=== PATIENT | female | born 1980 | race Caucasian/White ===

== ENCOUNTER → 2017-02-09 | Outpatient (CLI) | payer OTHER ==
[~2017-02-09] MED LIST: CYAN10005 PO; DOXY100T17 PO; ERGO500037 PO; vitamin B12 IM
--- NOTE | 2017-02-09 17:32 | DIAGNOSTIC IMAGING REPORT ---
Venous Doppler right leg RIGHT VENOUS DOPP LOWER EXT UNILAT CLINICAL HISTORY: SWELLING OF RIGHT LOWER EXTREMITY, M79.89 Right TECHNIQUE: Venous Doppler COMPARISON STUDY: None FINDINGS: Normal study IMPRESSION: Normal study Electronically signed by: Eber Bonner M.D. 02/09/2017 5:30 PM Dictated Date/Time: 02/09/2017 5:29 PM
== END | disposition home or self-care (01) ==
LOC: C.ULTR 16:56
PROVIDERS: ATTEND Internal Medicine
DX: M79.89 Other specified soft tissue disorders (principal)

== ENCOUNTER → 2017-04-22 | Outpatient (CLI) | payer OTHER ==
--- NOTE | 2017-04-22 17:31 | DIAGNOSTIC IMAGING REPORT ---
LEFT WRIST 4 VIEWS CLINICAL HISTORY: Left wrist pain. FINDINGS: 4 views of left wrist are obtained. No prior studies are available for comparison at the time of dictation. The skeletal structures are well mineralized. No fracture is seen. The joint spaces of the wrist are well-maintained. The overlying soft tissues are within normal limits. IMPRESSION: Unremarkable radiographic assessment of the left wrist. Electronically signed by: Calos Gurrola M.D. 04/22/2017 5:30 PM Dictated Date/Time: 04/22/2017 5:29 PM
[2017-04-22 17:45] LABS: BASO % 0.6 %; BASO ABS # 0.04 K/uL (0-0.2); COMPLETE YES; EOS % 0.8 %; HEMATOCRIT 40.7 % (37-47); IG% 0.2 %; LYMPH % 18.3 %; LYMPH ABS # 1.22 K/uL (1.2-3.4); MEAN CORPUSCULAR HEMOGLOBIN 27.6 pg (25-34); MEAN CORPUSCULAR HGB CONC 32.4 g/dl (32-36); MEAN PLATELET VOLUME 9.5 fL (7.4-10.4); MONO % 9.9 %; NEUT % 70.2 %; PLATELET COUNT 280 K/uL (130-400); RED BLOOD COUNT 4.79 M/uL (4.2-5.4); WHITE BLOOD COUNT 6.65 K/uL (4.8-10.8)
[2017-04-22 18:05] LABS: ALT/SGPT 19 U/L (12-78); BLOOD UREA NITROGEN 10 mg/dl (7-18); CALCIUM 9.2 mg/dl (8.5-10.1); CARBON DIOXIDE 28 mmol/L (21-32); CHLORIDE 108 mmol/L (98-107); CREATININE 0.88 mg/dl (0.60-1.20); GLUCOSE 79 mg/dl (70-99); POTASSIUM 3.5 mmol/L (3.5-5.1); SODIUM 141 mmol/L (136-145)
[2017-04-22 18:16] LABS: ALB/GLOB RATIO 1.3 (0.9-2); ALKALINE PHOSPHATASE 57 U/L (45-117); AST/SGOT 14 U/L (15-37)
== END | disposition home or self-care (01) ==
LOC: C.RAD1850 16:43
PROVIDERS: ATTEND Internal Medicine
DX: M25.532 Pain in left wrist (principal)

== ENCOUNTER → 2017-05-26 | Outpatient (CLI) | payer OTHER ==
[2017-05-26 17:57] LABS: LYME DISEASE AB IGG NEG (NEG); LYME DISEASE AB IGM NEG (NEG)
--- NOTE | 2017-05-30 12:55 | CODING QUERY MEDICAL NECESSITY ---
SUPPORTING DIAGNOSIS NEEDED A supporting diagnosis is required for the test/procedure performed on this patient in order for us to be reimbursed by the patient's insurance. Please provide a supporting diagnosis for the following test/procedure listed below next to the test name along with your signature. *If there is no additional diagnosis for this patient that would support the following test/procedure please document that below next to the test/procedure. Test(s)/Procedure(s) that require a supporting diagnosis: * VITAMIN D, 25-HYDROXY DIAGNOSIS: Provider Signature: Date: Thank you Rosio Mitchell [email or web address] Information [employer] Once completed, please kindly fax back to [phone] For questions please call [phone]
== END | disposition home or self-care (01) ==
LOC: C.LAB1850 15:39
PROVIDERS: ATTEND Psychiatry & Neurology Neurology
DX: R29.898 Other symptoms and signs involving the musculoskeletal system (principal); G20 Parkinson's disease; Z86.19 Personal history of other infectious and parasitic diseases; E55.9 Vitamin D deficiency, unspecified

== ENCOUNTER → 2017-06-02 | Outpatient (CLI) | payer OTHER ==
[~2017-06-02] MED LIST changes: +GADAVIST IV PRN
--- NOTE | 2017-06-02 18:23 | DIAGNOSTIC IMAGING REPORT ---
MRI OF THE BRAIN WITHOUT AND WITH IV CONTRAST CLINICAL HISTORY: PARKINSONISM HISTORY OF LYME DISEASE left-sided weakness COMPARISON STUDY: No previous studies for comparison. TECHNIQUE: MRI of the brain was performed from the vertex to the skull base utilizing various T1 and T2 weighted sequences. Following the IV administration of 13.1 mL of Gadavist contrast, additional enhanced images were obtained. FINDINGS: Sagittal T1, axial diffusion, proton density and T2 weighted axial, coronal FLAIR, and pre and post axial T1-weighted images were acquired. These were supplemented with post gadolinium coronal T1 weighted images. No intra or extra-axial mass lesions are visualized. Axial diffusion-weighted images reveal no evidence of acute or subacute infarction. There is no evidence of ventricular dilatation. Proton density T2-weighted and FLAIR images reveal no significant intraparenchymal signal abnormalities. A small linear horizontal focus of increased T2 signal within the right frontal white matter, likely represents a prominent perivascular space There are no abnormal flow voids. There is no evidence of pathologic enhancement. IMPRESSION: 1. No acute intracranial findings 2. No evidence of acute or subacute infarction 3. No evidence of intracranial mass Electronically signed by: Carroll Bowie M.D. 06/02/2017 6:22 PM Dictated Date/Time: 06/02/2017 6:18 PM
== END | disposition home or self-care (01) ==
LOC: C.MRI 17:17
PROVIDERS: ATTEND Psychiatry & Neurology Neurology
DX: G20 Parkinson's disease (principal)

== ENCOUNTER 2017-06-08 08:43 | Day surgery (SDC) | payer OTHER ==
[2017-06-08] VITALS (12 sets, daily range): BP systolic 50–114; BP diastolic 50–76; PULSE 69–87; TEMP 36.7–36.9; O2SAT 95–100; Ht 172.7 cm; Wt 83.0 kg
[~2017-06-08] VITALS: Ht 172.7 cm; Wt 83.0 kg
[~2017-06-08 08:43] MED LIST changes: -CYAN10005 PO; -ERGO500037 PO; -GADAVIST IV PRN; -vitamin B12 IM
[2017-06-08] MEDS ORDERED: CYAN10005 PO (09:08)
[2017-06-08] MEDS ORDERED: vitamin B12 IM (09:08)
[2017-06-08] MEDS ORDERED: ERGO500037 PO (09:08)
[2017-06-08 10:51] LABS: CSF CHEMISTRY TUBE # 1
[2017-06-08 11:06] LABS: CSF APPEARANCE CLEAR; CSF COLOR COLORLESS; CSF XANTHOCHROMIC NO XANTHOCHROMIA
--- NOTE | 2017-06-08 11:11 | Discharge Instructions ---
Discharge Instructions Procedure Procedure Date: Jun 08, 2017. Reason for visit: Hx Lymes, Parkinsonism. Discharge Discharge Date: Jun 08, 2017. Discharge Diagnosis: Successful fluoroscopic guided lumbar puncture for concern for lymes disease. Medications Restart Stopped Medication(s): Resume home meds Instructions Activity Recommendations: No limitations Return to School/Work: no limitations Recommended Home Diet: No Limitations Provider Instructions: Lumbar Puncture performed with Fluoroscopic guidance [L2-3 ] level with [ 22G 3.5 inch] needle. No complications. Allergies Coded Allergies: No Known Allergies (Verified , 06/08/17) Saadia Redmond Recommendations: Call your doctor if: * Temperature above 101 degrees * Pain not relieved by pain medicine ordered * There is increased drainage or redness from any incision * You have any unanswered questions or concerns. Your Doctors Instructions noted above were prepared by provider Cedric Gipson. Patient Signature Section: Patient Instructions Signature Page Naomi Irving Patient (or Guardian) Signature/Date: I have read and understand the instructions given to me by my caregivers. Caregiver/RN/Doctor Signature/Date: The above-named patient and/or guardian has received patient instructions on this date. + Original Patient Signature Page (only) stays with chart. Please make copy for patient.
[2017-06-08 11:15] LABS: CSF TOTAL PROTEIN 35.2 mg/dl (15.0-45.0)
[2017-06-08] MEDS ORDERED: ACETAMINOPHEN 500 MG TAB PO PRN (11:15)
--- NOTE | 2017-06-08 11:28 | DIAGNOSTIC IMAGING REPORT ---
LUMBAR PUNCTURE DIAGNOSTIC CLINICAL HISTORY: 36 years-old Female presenting with lines disease, parkinsonianism. COMPARISON: None. PROCEDURE: The procedure, risks and benefits were discussed with the patient including the risk of spinal headache, bleeding and infection. The patient agreed to the procedure and informed written consent was obtained. The procedure was performed by Dr. Gipson following a timeout. The L2-3 interlaminar space was targeted. Skin overlying the space was prepped and draped in the usual aseptic fashion and local anesthesia was achieved with 1% lidocaine. Under intermittent fluoroscopic guidance, a 20-gauge x 3 1/2 in. Sprotte needle was inserted into the thecal sac. Opening pressure was obtained and prone positioning, which measured 110 mmH2O. A total of 9 mL of clear, colorless cerebral spinal fluid was obtained and spread amongst 4 vials. The patient tolerated the procedure well. There were no immediate complications. The specimens were sent to the laboratory at the request of the referring physician. Reference range: Normal opening pressure 60-250 mmH2O (95% reference interval for lateral decubitus positioning). Fluoroscopy dosage: Not available. mGys. Fluoroscopy time: 0.3 minutes. Number of fluoroscopic spot images: 0. IMPRESSION: 1. Successful fluoroscopic guided lumbar puncture with removal of 9 mL of clear, colorless cerebral spinal fluid. No immediate complications. 2. Normal opening pressure. Electronically signed by: Cedric Gipson M.D. 06/08/2017 11:27 AM Dictated Date/Time: 06/08/2017 11:24 AM
[2017-06-13 08:49] LABS: ALBUMIN 3.8 g/dL (3.7-5.1); IGG CSF 2.1 mg/dL (0.8-7.7); IGG SERUM 1200 mg/dL (694-1618); LYME DNA PCR CSF OR SYNOVIAL Not detected (Not Detected); LYME DNA SOURCE CSF; LYME IGG CSF NO BANDS DETECTED; LYME IGM CSF NO BANDS DETECTED; MYELIN BASIC PROTEIN 663 <2.0 mcg/L (0.0-4.0)
== END 2017-06-08 14:47 | disposition home or self-care (01) ==
LOC: C.ACU 08:43
PROVIDERS: ATTEND Psychiatry & Neurology Neurology
DX: Z87.898 Personal history of other specified conditions (principal); G20 Parkinson's disease

== ENCOUNTER 2017-06-11 13:19 | Emergency (ER) | payer OTHER ==
[~2017-06-11] VITALS: Ht 172.7 cm; Wt 82.5 kg
[~2017-06-11 13:19] MED LIST changes: +CYAN10005 PO; -DOXY100T17 PO; +ERGO500037 PO; +vitamin B12 IM
[2017-06-11 13:21] VITALS: TEMP 36.7; Ht 172.7 cm; Wt 82.5 kg
--- NOTE | 2017-06-11 14:04 | EMERGENCY ROOM VISIT NOTE ---
History First contact with patient: 13:31 Chief Complaint: HEADACHE Stated Complaint: HEADACHE History of Present Illness The patient is a 36 year old female who presents to the Emergency Room by private vehicle for evaluation of a headache. The patient reports that she had a lumbar puncture performed 3 days ago. This was performed by the radiologist here and was ordered by her neurologist due to right arm weakness and a history of Lyme disease 3 years ago. She states that the headache started the morning following the lumbar puncture. The headache is a 10/10 when she is sitting or standing and almost completely resolves when she is lying supine. She tried Tylenol and Advil without relief. She has had 3 episodes of vomiting and states that she becomes nauseated whenever she stands up. She denies any fevers or neck pain/stiffness. She denies any history of headaches. She denies any new numbness or weakness, blurred vision or slurred speech. Review of Systems A complete 10 point review of systems was reviewed with the patient with pertinent positives and negatives as per history of present illness. All else were negative. Past Medical/Surgical History Medical Problems: (1) Fever (2) Fever (3) No significant past medical history (4) UTI (urinary tract infection) Surgical Problems: (1) No significant past surgical history Social History Smoking Status: Never Smoker Alcohol Use: none Drug Use: none Marital Status: Housing Status: lives with family Occupation Status: employed Current/Historical Medications Scheduled Cyanocobalamin (Vitamin B-12), 1,000 MCG PO DAILY Ergocalciferol (Vitamin D 57205 Unit), 50,000 UNIT PO WK [vitamin B12], 1 VIAL IM MONTHLY Physical Exam Vital Signs Date Time Temp Pulse Resp B/P (MAP) Pulse Ox O2 Delivery O2 Flow Rate FiO2 06/11/17 16:18 79 16 128/83 99 06/11/17 15:01 76 16 121/83 99 Room Air 06/11/17 13:21 36.7 89 18 115/81 99 Room Air Physical Exam VITALS: Vitals are noted on the nurse's note and reviewed by myself. Vital signs stable. GENERAL: This is a 36-year-old female, in no acute distress, nondiaphoretic, well-developed well-nourished. SKIN: The skin was without rashes, erythema, edema, or bruising. HEAD: Normocephalic atraumatic. EARS: External auditory canals clear, tympanic membranes pearly stevenson without erythema or effusion bilaterally. EYES: Pupils equal round and reactive to light and accommodation. Conjunctivae without injection, sclerae without icterus. Extraocular movements intact. MOUTH: Mucous membranes moist. Tonsils are not enlarged. NECK: Supple without nuchal rigidity. No lymphadenopathy. No meningismus. HEART: Regular rate and rhythm without murmurs gallops or rubs. LUNGS: Clear to auscultation bilaterally without wheezes, rales or rhonchi. MUSCULOSKELETAL: No muscle atrophy, erythema, or edema noted. Full range of motion in all extremities. Strength 5/5 throughout. NEURO: Patient was alert and oriented to person place and time. Normal sensation throughout. No focal neurological deficits. Medical Decision & Procedures ED Course The patient was evaluated as above. Case was discussed with Dr. Coe of anesthesiology. He will evaluate the patient and perform a blood patch. Patient was reevaluated after the blood patch and felt much better. Discharge instructions were reviewed with the patient. The patient verbalized understanding of my assessment and treatment plan and was discharged home in good condition. Medical Decision The differential diagnosis includes post lumbar puncture headache, acute intracranial bleed, meningitis, encephalitis, mass or mass effect, sinusitis, infection, tumor, headache, temporal arteritis and carbon monoxide exposure, and migraine. The patient is a 36-year-old female who presents today complaining of headache consistent with a post lumbar puncture headache. There is no evidence of infection on exam. No meningismus or fevers. Anesthesiology was consulted and performed a blood patch with good relief. She was instructed to follow up with her neurologist or PCP as needed. Based on the patient's presentation and work up, I feel the patient is stable for outpatient treatment. The patient was educated to return to the emergency department for any worsening of their current condition or new/concerning symptoms. She will follow up with her neurologist. Medication Reconcilliation Current Medication List: was personally reviewed by me Blood Pressure Screening Patient's blood pressure: Normal blood pressure Impression Primary Impression: Post lumbar puncture headache Departure Information Dispostion Home / Self-Care Condition GOOD Referrals No Doctor, Assigned (PCP) Patient Instructions My SideStep Additional Instructions Limited physical activity for the next 24-48 hours. For pain control, you can use the following [id number] medicines (if >12 yo): - Regular strength (325mg/tab) Tylenol (acetaminophen) 2 tabs every 4-6 hours as needed. Do not exceed 12 tablets in a 24 hour period. Avoid taking more than 4 grams (4000 mg) of Tylenol per day. This includes any other sources of acetaminophen you may take on a regular basis. - Regular strength (200 mg/tab) Advil (ibuprofen) 1-2 tabs every 4-6 hours as needed. Do not exceed a dose of 3200 mg per day. Follow-up with your neurologist or primary care provider as needed. Return to the emergency department with any worsening or new/concerning symptoms.
--- NOTE | 2017-06-11 15:22 | Anesthesiology Progress Note ---
Anesthesia Progress Note Date of Service Jun 11, 2017. Progress Notes Epidural Blood Patch Note 35 yo female presented to ED c/o headache. Pt had lumbar puncture 3 days ago after c/o arm weakness and has history of Lyme disease. PMH is otherwise non- contributory. Pt describes headache as severe when standing or active and relieved by recumbency. She also has associated nausea and vomiting several times secondary to pain. I concur with ED staff diagnosis of post dural puncture headache. I described to pt conservative treatment vs aggressive treatment with blood patch. She replied that she cannot function due to HAN and opted for blood patch. Signed informed consent obtained. Pt identified, time out for procedure performed. In sitting position, lumbar skin prepped with Duraprep and draped sterile. Local 1% lidocaine given to skin. Using 17g Touhy needle, L4-L5 epidural space entered using LORT. 20cc autologous blood drawn sterile from right antecubital vein and injected to epidural space. Pt tolerated procedure without c/o pain in lower back or any other. She should rest in litter for 1 hour then D/C home with escort. No vigorous or strenuous activity for 24 hrs, then ad osmany. Expect prompt, complete resolution of headache. Please re-consult if needed.
[2017-06-11 16:18] VITALS: BP 128/83; PULSE 79; O2SAT 99
== END 2017-06-11 16:20 | disposition home or self-care (01) ==
LOC: C.EDB 13:20 → C.EDC 16:20
DX: G97.1 Other reaction to spinal and lumbar puncture (principal); Z87.440 Personal history of urinary (tract) infections; Z79.899 Other long term (current) drug therapy

== ENCOUNTER → 2017-08-19 | Outpatient (CLI) | payer OTHER | END | disposition home or self-care (01) | LOC: C.LAB1850 15:55 | PROVIDERS: ATTEND Psychiatry & Neurology Neurology | DX: R29.90 Unspecified symptoms and signs involving the nervous system (principal); G20 Parkinson's disease ==

== ENCOUNTER → 2017-11-03 | Outpatient (CLI) | payer OTHER | END | disposition home or self-care (01) | LOC: C.LAB1850 14:39 | PROVIDERS: ATTEND Psychiatry & Neurology Neurology | DX: E53.8 Deficiency of other specified B group vitamins (principal); E55.9 Vitamin D deficiency, unspecified ==

== ENCOUNTER → 2017-12-15 | Outpatient (CLI) | payer OTHER ==
[2017-12-15 16:25] LABS: BLOOD UREA NITROGEN 10 mg/dl (7-18); CALCIUM 8.9 mg/dl (8.5-10.1); CARBON DIOXIDE 27 mmol/L (21-32); CREATININE 0.79 mg/dl (0.60-1.20); GLUCOSE 96 mg/dl (70-99); POTASSIUM 3.4 mmol/L (3.5-5.1); SODIUM 137 mmol/L (136-145)
== END | disposition home or self-care (01) ==
LOC: C.LAB1850 15:04
PROVIDERS: ATTEND Internal Medicine
DX: R39.9 Unspecified symptoms and signs involving the genitourinary system (principal); E55.9 Vitamin D deficiency, unspecified; R25.9 Unspecified abnormal involuntary movements; E53.8 Deficiency of other specified B group vitamins

== ENCOUNTER → 2017-12-20 | Outpatient (CLI) | payer OTHER ==
--- NOTE | 2017-12-20 16:25 | DIAGNOSTIC IMAGING REPORT ---
RENAL ULTRASOUND CLINICAL HISTORY: Kidney pain. COMPARISON STUDY: Renal ultrasound September 17, 2013. TECHNIQUE: Sonography of the kidneys and the urinary bladder was performed. FINDINGS: The right kidney measures 11 x 3.9 x 5.2 cm and the left measures 11.3 x 4.1 x 4.2 cm. There is no hydronephrosis. No mass or calculi are identified within the kidneys by sonography. Both ureteral jets were identified. IMPRESSION: Normal renal ultrasound. No hydronephrosis. Electronically signed by: Matias Long M.D. 12/20/2017 4:23 PM Dictated Date/Time: 12/20/2017 4:23 PM
== END | disposition home or self-care (01) ==
LOC: C.ULTR 15:41
PROVIDERS: ATTEND Internal Medicine
DX: N23 Unspecified renal colic (principal)

== ENCOUNTER → 2018-02-08 | Outpatient (CLI) | payer OTHER ==
[2018-02-08 15:46] LABS: BASO % 0.7 %; BASO ABS # 0.03 K/uL (0-0.2); EOS % 3.7 %; EOS ABS # 0.17 K/uL (0-0.5); HEMOGLOBIN 12.9 g/dL (12.0-16.0); IG# 0.01 K/uL (0.00-0.02); LYMPH % 29.8 %; LYMPH ABS # 1.37 K/uL (1.2-3.4); MEAN CELL VOLUME 83.3 fL (80-100); MEAN CORPUSCULAR HEMOGLOBIN 27.6 pg (25-34); MEAN CORPUSCULAR HGB CONC 33.1 g/dl (32-36); MEAN PLATELET VOLUME 9.3 fL (7.4-10.4); MONO % 12.9 %; MONO ABS # 0.59 K/uL (0.11-0.59); NEUT % 52.7 %; NEUT ABS # 2.42 K/uL (1.4-6.5); PLATELET COUNT 273 K/uL (130-400); RED CELL DISTRIBUTION WIDTH CV 13.2 % (11.5-14.5); RED CELL DISTRIBUTION WIDTH SD 39.9 fL (36.4-46.3); WHITE BLOOD COUNT 4.59 K/uL (4.8-10.8)
[2018-02-08 16:03] LABS: ALBUMIN 3.8 gm/dl (3.4-5.0); ALT/SGPT 21 U/L (12-78); AST/SGOT 12 U/L (15-37); BLOOD UREA NITROGEN 8 mg/dl (7-18); CALCIUM 9.1 mg/dl (8.5-10.1); CARBON DIOXIDE 26 mmol/L (21-32); CREATININE 0.85 mg/dl (0.60-1.20); GLUCOSE 86 mg/dl (70-99); POTASSIUM 3.6 mmol/L (3.5-5.1); SODIUM 140 mmol/L (136-145)
[2018-02-08 16:06] LABS: ALKALINE PHOSPHATASE 62 U/L (45-117); TOTAL PROTEIN 7.3 gm/dl (6.4-8.2)
[2018-02-13 01:10] LABS: CLAM CLASS 0; CLAM IGE <0.10 KU/L; CRAB CLASS 0; CRAB IGE <0.10 KU/L; LOBSTER CLASS 0; LOBSTER IGE <0.10 KU/L; SHRIMP CLASS 0; SHRIMP IGE <0.10 KU/L
== END | disposition home or self-care (01) ==
LOC: C.LAB1850 14:41
PROVIDERS: ATTEND Internal Medicine Pulmonary Disease
DX: L50.3 Dermatographic urticaria (principal)

== ENCOUNTER → 2018-06-16 | Outpatient (CLI) | payer OTHER ==
[~2018-06-16] MED LIST changes: +GADAVIST IV PRN
--- NOTE | 2018-06-16 15:42 | DIAGNOSTIC IMAGING REPORT ---
MRI LUMBAR SPINE COMBINATION CLINICAL HISTORY: BACK PAIN LEFT LEG RADICULOPATHY. LEFT TOE NUMBNESS. TECHNIQUE: Sagittal and axial T1, T2 and STIR images were obtained. Imaging was acquired before and after the administration of 8.5 cc of intravenous Gadavist. COMPARISON STUDY: No previous studies for comparison. OBSERVATIONS: The vertebral bodies and posterior elements appear intact. There is no abnormal bony signal present to suggest a marrow replacement process. L1-2: No disc protrusions or extrusions. No evidence of spinal canal or neural foraminal compromise. L2-3: No disc protrusions or extrusions. No evidence of spinal canal or neural foraminal compromise. L3-4: No disc protrusions or extrusions. No evidence of spinal canal or neural foraminal compromise. L4-5: No disc protrusions or extrusions. No evidence of spinal canal or neural foraminal compromise. L5-S1: There is a very minor circumferential disc bulge. There is no spinal or foraminal stenosis. The conus medullaris and cauda equina appear normal. Postcontrast images reveal no pathologically enhancing lesions. IMPRESSION: Minimal circumferential disc bulge at the L5-S1 level. Essentially normal MRI of the lumbar spine for age. Electronically signed by: Carroll Bowie M.D. 06/16/2018 3:41 PM Dictated Date/Time: 06/16/2018 3:35 PM
== END | disposition home or self-care (01) ==
LOC: C.MRIBC 14:54
PROVIDERS: ATTEND Psychiatry & Neurology Neurology
DX: M54.5 Low back pain (principal); M54.17 Radiculopathy, lumbosacral region

== ENCOUNTER → 2018-06-16 | Outpatient (CLI) | payer OTHER ==
[~2018-06-16] MED LIST changes: -GADAVIST IV PRN
== END | disposition home or self-care (01) ==
LOC: C.LAB1850 14:14
PROVIDERS: ATTEND Internal Medicine
DX: R94.6 Abnormal results of thyroid function studies (principal)